=== PATIENT | male | born 1960 | race Native Hawaiian/Other Pacific Islander ===

== ENCOUNTER 2020-07-10 15:50 | Emergency (ER) | payer OTHER ==
[~2020-07-10] VITALS: Ht 182.9 cm; Wt 122.5 kg
[2020-07-10 15:50] VITALS: TEMP 98.7
[2020-07-10 16:13] LABS: PLATELET COUNT 180 K/uL (142-355)
[2020-07-10 16:45] VITALS: BP 141/78
[2020-07-10] MEDS ORDERED: AMLODIPINE BESYLATE PO (17:22)
[2020-07-10] MEDS ORDERED: CARV3.12 PO (17:23)
[2020-07-10] MEDS ORDERED: LIPITOR20 MG PO (17:23)
[2020-07-10] MEDS ORDERED: FLUOXETINE40 MG PO (17:25)
[2020-07-10] MEDS ORDERED: HALO10TA5 PO (17:25)
[2020-07-10] MEDS ORDERED: KP FOLIC ACID1 MG PO (17:25)
[2020-07-10] MEDS ORDERED: ZESTRIL30 MG PO (17:26)
[2020-07-10] MEDS ORDERED: THERA M PLUS PO (17:27)
[2020-07-10] MEDS ORDERED: META800T35 PO (17:27)
[2020-07-10] MEDS ORDERED: FAMO20TA4 PO (17:28)
[2020-07-10] MEDS ORDERED: MIRALAX3350 N1 PO (17:29)
[2020-07-10] MEDS ORDERED: QUETIAPINE200 MG PO (17:29)
[2020-07-10] MEDS ORDERED: SENNA LAX8.6 MG PO (17:30)
[2020-07-10] MEDS ORDERED: SODI1TAB PO (17:31)
[2020-07-10] MEDS ORDERED: TAMS0.4C PO (17:32)
[2020-07-10] MEDS ORDERED: THIA100T8 PO (17:32)
[2020-07-10] MEDS ORDERED: REMERON30 MG PO (17:33)
[2020-07-10] MEDS ORDERED: QUETIAPINE300 MG PO (17:34)
[2020-07-10] MEDS ORDERED: TRAZ100T PO (17:35)
[2020-07-10] MEDS ORDERED: VITAMIN C 500 M1 TAB PO (17:36)
[2020-07-10] MEDS ORDERED: INSUINJP SC (17:38)
[2020-07-10] MEDS ORDERED: ALBU0.5N13 INH (17:52)
[2020-07-10] MEDS ORDERED: LACTSYP31 PO (17:53)
[2020-07-10] MEDS ORDERED: LORA1TAB17 PO (17:54)
[2020-07-10] MEDS ORDERED: FINGERSTIX (17:56)
[2020-07-10] MEDS ORDERED: HUMALOG KW100 UNIT/M SC (17:58)
== END 2020-07-10 16:45 | disposition home or self-care (01) ==
LOC: ED 15:58
PROVIDERS: Family Medicine
DX: R45.851 Suicidal ideations (principal); F20.89 Other schizophrenia; Z11.59 Encounter for screening for other viral diseases; Z04.6 Encounter for general psychiatric examination, requested by authority
CPT/HCPCS: 80053; 81000; 85027; 87635; 93005; 99285; U0003

== ENCOUNTER 2022-04-19 00:07 | Emergency (ER) | payer OTHER ==
[~2022-04-19] VITALS: Ht 182.9 cm; Wt 115.2 kg
[~2022-04-19 00:07] MED LIST: ALBU0.5N13 INH; AMLODIPINE BESYLATE PO; CARV3.12 PO; CLOZ100T PO; CYAN10009 IM; FAMO20TA4 PO; FINGERSTIX; FLUOXETINE40 MG PO; HALO10TA5 PO; INSUINJP SC; KP FOLIC ACID1 MG PO; LACTSYP31 PO; LIPITOR40 MG PO; LORA1TAB17 PO; META800T35 PO; MIRALAX3350 N1 PO; MIRTAZAPINE7.5 MG PO; NOVOLOG100 UNIT/M SC; QUETIAPINE200 MG PO; QUETIAPINE300 MG PO; REMERON30 MG PO; SENNA LAX8.6 MG PO; SODI1TAB PO; TAMS0.4C PO; THERA M PLUS PO; THIA100T8 PO; TRAZ100T PO; VITAMIN C 500 M1 TAB PO; ZESTRIL30 MG PO
[2022-04-19 01:22] LABS: PLATELET COUNT 81 K/uL (142-355)
[2022-04-19 01:28] LABS: POTASSIUM 3.5 mmol/L (3.6-5.2)
[2022-04-19 05:30] VITALS: TEMP 98
[2022-04-19 07:00] VITALS: BP 139/58
[2022-04-19 08:42] LABS: PLATELET COUNT 82 K/uL (142-355)
[2022-04-19] MEDS ORDERED: PANTOPRAZOLE 40MG TA PO (13:39)
[2022-04-19] MEDS ORDERED: CYAN10009 IM (13:40)
[2022-04-19] MEDS ORDERED: [UNRECOGNIZED DRUG - OTHER] PO (13:44)
[2022-04-19] MEDS ORDERED: POTASSIUM CL PO (13:44)
[2022-04-19] MEDS ORDERED: LORA1TAB17 PO (13:48)
[2022-04-19] MEDS ORDERED: TYLENOL325 MG PO (13:52)
[2022-04-19] MEDS ORDERED: LACTULOSE10 GM/151 PO (13:52)
[2022-04-19] MEDS ORDERED: LITHIUM CARB150 MG PO (13:56)
[2022-04-19] MEDS ORDERED: LITHIUM CARB300 MG PO (13:57)
[2022-04-19] MEDS ORDERED: SEROQUEL100 MG PO (13:58)
[2022-04-19] MEDS ORDERED: QUETIAPINE400 MG PO (13:58)
[2022-04-20] MEDS ORDERED: GABA300C2 PO (15:12)
[2022-04-20] MEDS ORDERED: LORA1TAB17 PO (15:14)
== END 2022-04-19 09:45 | disposition still patient (30) ==
LOC: ED 00:07
PROVIDERS: Emergency Medicine Emergency Medical Services
PROC: 30233N1 Transfusion of Nonautologous Red Blood Cells into Peripheral Vein, Percutaneous Approach (ICD-10-PCS; principal; 2022-04-19)
DX: R46.89 Other symptoms and signs involving appearance and behavior (principal); F20.89 Other schizophrenia; D64.9 Anemia, unspecified; Z11.52 Encounter for screening for COVID-19; Z04.6 Encounter for general psychiatric examination, requested by authority
CPT/HCPCS: 36415; 36430; 80053; 81002; 82272; 82728; 83540; 83550; 85027; 86850; 86900; 86901; 86922; 87635; 93005; 96374; 99284; J1815; J1940; P9016; U0003